=== PATIENT | female | born 1955 | race Asian ===

== ENCOUNTER → 2020-03-19 | Outpatient (CLI) | payer OTHER ==
--- NOTE | 2020-03-19 16:22 | RAD ---
Single AP view of the bilateral knees and 2 additional views of the left knee without comparison for left knee pain. FINDINGS: AP right knee is unremarkable. Left knee is notable for monarticular arthritis primarily in volving the medial joint compartment, a distribution most consistent with osteoarthritis. There is mi nimal patellofemoral arthritis. No suprapatellar joint effusion. No fracture or acute osseous abnorma lity. IMPRESSION: 1. No acute osseous abnormality. 2. 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 Electronically signed by: Nader Peoples MD (03/19/2020 4:19 PM) [id number]
== END ==
LOC: DXRAD 14:31
PROVIDERS: ATTEND Physician Assistant
DX: M17.12 Unilateral primary osteoarthritis, left knee (principal)
CPT/HCPCS: 73562; 73565

== ENCOUNTER → 2020-08-02 | Outpatient (CLI) | payer OTHER ==
--- NOTE | 2020-08-02 08:38 | RAD ---
EXAM: Abdomen sonogram. HISTORY: Epigastric pain. TECHNIQUE: Sonographic imaging of the abdomen was performed. COMPARISON: None. FINDINGS: The liver is normal in size. No focal hepatic lesion is seen. The common bile duct is sima l in caliber. The gallbladder, kidneys, pancreas, spleen, aorta and vena cava are unremarkable. IMPRESSION: Unremarkable abdomen sonogram. Electronically signed by: Krista Viera MD (08/02/2020 8:36 AM) [id number]
== END ==
LOC: US 07:48
PROVIDERS: ATTEND Internal Medicine Gastroenterology
DX: R10.13 Epigastric pain (principal)
CPT/HCPCS: 76700